=== PATIENT | female | born 1995 | race Caucasian/White ===

== ENCOUNTER → 2018-11-08 | Outpatient (REF) | payer OTHER | LOC: M SFHCPLAZ 11:55 | PROVIDERS: ATTEND Dermatology | DX: L91.0 Hypertrophic scar (principal) ==

== ENCOUNTER → 2024-03-29 | Outpatient (REF) | payer BC ==
[~2024-03-29] MED LIST: COLA100C5 PO; DOXY25TA PO; IBUP80TA PO; MAGN400C2 PO; PERCOCET PO
== END ==
LOC: MERGE 10:18 → M SFHCWAGY 10:18
PROVIDERS: ATTEND Obstetrics & Gynecology
DX: Z12.4 Encounter for screening for malignant neoplasm of cervix (principal)
CPT/HCPCS: 87624; G0123